=== PATIENT | female | born 1960 ===

== ENCOUNTER 2017-03-29 11:08 | Emergency (ER) | payer OTHER, SELFPAY ==
--- NOTE | 2017-03-29 11:30 | ERPHSYRPT ---
- History of Present Illness Time Seen by Provider: 03/29/17 11:22 Historian: patient Exam Limitations: no limitations Patient Subjective Stated Complaint: Pt sts chest pain substernal non-radiating for a few days today. Pain is intermittent in nature lasting 30-45 seconds. Describes the pain as dull. Pt rates pain 7/10 when pain is present. Pt sts pain is 5/10 at present. Sts pain started this morning - worse than last few days. Pt sts has hx of cardiac problems - sees Dr. Villanueva. Sts last saw him in January. Sts was taken off several cardiac medications - was told she needed to see a therapist because it was all in her head. Pt sts feels exhausted. Denies shortness of breath. Nausea x 3 days. No vomiting. Denies cold symptoms. Sts took 4 baby aspirin [employer]. Sts neck hurts but this has been going on for months. Triage Nursing Assessment: Pt alert, orientd, answers all questions appropriately. Skin pink, moist. Resps non-labored. Lung sounds CTA bilat. No wheezes, rhonchi, rales. Heart RRR. Ambulatory to treatment room, steady gait noted. Physician History: This is a 56-year-old white female with history of high blood pressure who has been complaining of intermittent chest pain anterior chest for 3 days she states today the pain began upon awakening at 9:30 she describes the pain as a dull ache, she denies shortness of breath she states she does have some nausea,. She states she took 4 baby aspirin prior to arrival at 11:00 this morning, Patient also states that she's been running a high blood pressure for a month she states that she's been having pain in her anterior neck for a month, Patient states that she is on anxiety medication secondary to her high blood pressure Past medical history includes high blood pressure, Past surgical history includes cholecystectomy tubal ligation Timing/Duration: day(s) (intermittent for 3 days today since 9:30) Activities at Onset: rest Quality: aching Location: substernal Chest Pain Radiation: neck Severity of Pain-Max: moderate Severity of Pain-Current: moderate Modifying Factors: Improves With: aspirin (patient took aspirin prior to arrival) Associated Symptoms: nausea, fatigue, No vomiting, No palpitations, No heartburn , No abdominal pain, No shortness of breath, No cough, No hurts to breathe, No diaphoresis, No chills, No fever, No weakness, No swelling/lump in chest, No syncope, No rash, No headache, No dizziness, No edema, No back pain Prior Chest Pain/Cardiac Workup: recently seen/treated (seen by Dr Villanueva in January) Nitro Today/Relief: no nitro taken today Aspirin Treatment Today: 81 mg x 4, provided at home Allergies/Adverse Reactions: codeine Allergy (Verified 03/13/16 19:32) hydrochlorothiazide Allergy (Verified 03/13/16 19:32) bupropion [From Wellbutrin] Adverse Reaction (Intermediate, Verified 03/29/17 11 :32) Itching Home Medications: Metoprolol Tartrate 50 mg PO DAILY 03/13/16 [History] Alprazolam [Xanax 0.5 mg] 0.5 mg PO HS 03/29/17 [History] Hydroxyzine HCl 25 mg PO HS 03/29/17 [History] Sertraline HCl [Zoloft] 100 mg PO 03/29/17 [History] Hx Tetanus, Diphtheria Vaccination/Date Given: Yes Hx Influenza Vaccination/Date Given: No Hx Pneumococcal Vaccination/Date Given: No Immunizations Up to Date: Yes - Review of Systems Constitutional: No Fever, No Chills Eyes: No Symptoms Ears, Nose, & Throat: No Symptoms Respiratory: No Cough, No Dyspnea Cardiac: Chest Pain, Other (pain in the anterior neck off and on for a month) Abdominal/Gastrointestinal: Nausea, No Abdominal Pain, No Vomiting, No Diarrhea , No Constipation, No Hematemesis, No Hematochezia, No Melena, No Dysphagia, No Appetite Changes Genitourinary Symptoms: No Dysuria Musculoskeletal: No Back Pain, No Neck Pain Skin: No Rash Neurological: No Dizziness, No Focal Weakness, No Sensory Changes Psychological: No Symptoms Endocrine: No Symptoms All Other Systems: Reviewed and Negative - Past Medical History Pertinent Past Medical History: Yes Neurological History: No Pertinent History ENT History: No Pertinent History Cardiac History: Hypertension Respiratory History: No Pertinent History Endocrine Medical History: No Pertinent History Musculoskeletal History: No Pertinent History GI Medical History: Gallbladder Disease History: No Pertinent History Psycho-Social History: No Pertinent History Female Reproductive Disorders: No Pertinent History - Past Surgical History Past Surgical History: Yes Neuro Surgical History: No Pertinent History Cardiac: No Pertinent History Respiratory: No Pertinent History Gastrointestinal: Cholecystectomy Genitourinary: No Pertinent History Musculoskeletal: No Pertinent History Female Surgical History: Tubal Ligation - Social History Smoking Status: Never smoker Exposure to second hand smoke: No Drug Use: none Patient Lives Alone: No Significant Family History: heart disease, hypertension, stroke - Female History Hx Last Menstrual Period: post-menopausal - Nursing Vital Signs Nursing Vital Signs: Initial Vital Signs Pulse Rate 76 03/29/17 11:10 Respiratory Rate 16 03/29/17 11:10 Blood Pressure 164/118 03/29/17 11:10 O2 Sat by Pulse Oximetry 98 03/29/17 11:10 Pain Scale Pain Intensity 5 - Physical Exam General Appearance: no apparent distress, alert Eye Exam: PERRL/EOMI, eyes nml inspection Ears, Nose, Throat Exam: normal ENT inspection, moist mucous membranes Neck Exam: normal inspection, non-tender, supple, full range of motion Respiratory Exam: normal breath sounds, lungs clear, No respiratory distress Cardiovascular Exam: regular rate/rhythm, normal heart sounds Gastrointestinal/Abdomen Exam: soft, No tenderness, No mass Back Exam: normal inspection, No CVA tenderness, No vertebral tenderness Extremity Exam: normal inspection, normal range of motion Neurologic Exam: alert, oriented x 3, cooperative, filter press tender II-XII nml as tested, normal mood/affect, sensation nml, No motor deficits Skin Exam: normal color, warm, dry SpO2 Interpretation: normal (98%) SpO2: 98 Oxygen Delivery: Room Air - Course Nursing assessment & vital signs reviewed: Yes EKG Interpreted by Me: RATE (66 bpm), Sinus Rhythm, NORMAL AXIS, Other (EKG: Sinus rhythm, 66 bpm, normal axis, no acute ST or T wave changes, essentially normal EKG) - Radiology Exams Chest X-ray Interpretation: Discussed w/ radiologist (stable, non acute chest) Ordered Tests: Active Orders 24 hr Category Date Time Status Mesh Worker STAT Care 03/29/17 11:24 Active EKG-ER Only STAT Care 03/29/17 11:23 Active IV Insertion STAT Care 03/29/17 11:23 Active Pulse Oximetry (ED) STAT Care 03/29/17 11:23 Active CHEST 1 VIEW (PORTABLE) Stat Exams 03/29/17 11:23 Completed AMYLASE Stat Lab 03/29/17 12:03 Completed CBC W DIFF Stat Lab 03/29/17 11:15 Completed CMP Stat Lab 03/29/17 11:15 Completed D-DIMER QUANTITATION Stat Lab 03/29/17 11:15 Completed LIPASE Stat Lab 03/29/17 12:03 Completed PROTIME WITH INR Stat Lab 03/29/17 11:15 Completed PTT Stat Lab 03/29/17 11:15 Completed TROPONIN Q3H Lab 03/29/17 11:15 Completed TROPONIN Q3H Lab 03/29/17 14:30 Ordered TROPONIN Q3H Lab 03/29/17 17:30 Ordered TROPONIN Q3H Lab 03/29/17 20:30 Ordered TROPONIN Q3H Lab 03/29/17 23:30 Ordered Lab/Rad Data: Laboratory Result Diagrams 03/29/17 11:15 03/29/17 11:15 Laboratory Results 03/29/17 03/29/17 03/29/17 Range/Units 12:03 11:15 11:15 WBC (4.0-10.5) K/mm3 RBC (4.1-5.4) M/mm3 Hgb (12.0-16.0) gm/dl Hct (35-47) % MCV (78-100) fl MCH (26-32) pg MCHC (32-36) g/dl RDW (11.5-14.0) % Plt Count (150-450) K/mm3 MPV (6-9.5) fl Gran % (36.0-66.0) % Lymphocytes % (24.0-44.0) % Monocytes % (0.0-12.0) % Eosinophils % (0.00-5.0) % Basophils % (0.0-0.4) % Basophils # (0-0.4) INR 1.11 (0.8-3.0) APTT 33.6 (25.3-37.0) SECONDS D-Dimer 302 (0-500) ng/mL Sodium (136-145) mEq/L Potassium (3.5-5.1) mEq/L Chloride (98-107) mEq/L Carbon Dioxide (21-32) mEq/L Anion Gap (5-15) MEQ/L BUN (9-20) mg/dL Creatinine (0.55-1.30) mg/dl Estimated GFR ML/MIN Glucose (70-110) MG/DL Calcium (8.5-10.1) mg/dL Total Bilirubin (0.2-1.0) mg/dL AST (15-37) U/L ALT (12-78) U/L Alkaline Phosphatase (46-116) U/L Troponin I 0.033 (0.000-0.056) ng/ml Serum Total Protein (6.4-8.2) gm/dL Albumin (3.4-5.0) g/dL Amylase 34 (25-115) U/L Lipase 135 (73-393) U/L 03/29/17 03/29/17 Range/Units 11:15 11:15 WBC 7.4 (4.0-10.5) K/mm3 RBC 4.89 (4.1-5.4) M/mm3 Hgb 14.3 (12.0-16.0) gm/dl Hct 42.7 (35-47) % MCV 87.3 (78-100) fl MCH 29.2 (26-32) pg MCHC 33.5 (32-36) g/dl RDW 13.8 (11.5-14.0) % Plt Count 257 (150-450) K/mm3 MPV 11.2 H (6-9.5) fl Gran % 61.0 (36.0-66.0) % Lymphocytes % 28.6 (24.0-44.0) % Monocytes % 7.4 (0.0-12.0) % Eosinophils % 2.7 (0.00-5.0) % Basophils % 0.3 (0.0-0.4) % Basophils # 0.02 (0-0.4) INR (0.8-3.0) APTT (25.3-37.0) SECONDS D-Dimer (0-500) ng/mL Sodium 143 (136-145) mEq/L Potassium 3.6 (3.5-5.1) mEq/L Chloride 105 (98-107) mEq/L Carbon Dioxide 26.8 (21-32) mEq/L Anion Gap 14.5 (5-15) MEQ/L BUN 8 L (9-20) mg/dL Creatinine 0.71 (0.55-1.30) mg/dl Estimated GFR > 60 ML/MIN Glucose 115 H (70-110) MG/DL Calcium 9.5 (8.5-10.1) mg/dL Total Bilirubin 1.10 H (0.2-1.0) mg/dL AST 21 (15-37) U/L ALT 26 (12-78) U/L Alkaline Phosphatase 78 (46-116) U/L Troponin I (0.000-0.056) ng/ml Serum Total Protein 7.5 (6.4-8.2) gm/dL Albumin 3.8 (3.4-5.0) g/dL Amylase (25-115) U/L Lipase (73-393) U/L - Progress Progress: improved Air Movement: fair Progress Note: 03/29/17 12:28 56-year-old white female with history of high blood pressure, anxiety. Who has been having chest pain 30 seconds duration off and on for the past 3 days. She's had neck pain for 30 days anteriorly. She has recently seen her adjudication specialist who she states had told her that she did not have cardiac problems and referred her to psychiatrist Patient did have an elevated blood pressure on arrival of 164/118 which is spontaneously decreased to 140/80. Patient is on metoprolol and hydroxyzine for her blood pressure she also takes a long acting alprazolam. Patient is really feeling better on recheck she is not having any pain EKG is normal chest x-ray is normal troponin is normal chemistry is normal I've discussed the patient's case with her I've offered to repeat her troponin she does not want to do this. She does state that she is frustrated with her medical condition and her doctor 's. She states she had a bad dream last night really doesn't elaborate. She denies any suicidal or homicidal ideation. Patient sees a psychiatrist Dr. Markham she states she wants to get in to see him.. Will await amylase and lipase plan to release. Will have nurse contact Dr. Markham's office and see if we can arrange follow-up 03/29/17 12:51 Patient's nurse contacted Dr. Markham's office (the patient's psychiatrist), patient already has an appointment scheduled for April 10 at 11:15 AM. Will discharge patient patient to follow-up with Dr. Markham. To follow-up with her family doctor. 03/29/17 12:53 Patient refuses repeat troponin. - Departure Time of Disposition: 12:54 Departure Disposition: Home Clinical Impression: Non-cardiac chest pain, Generalized anxiety disorder Condition: Fair Critical Care Time: No Referrals: JENNIFER CASTANON [ACTIVE STAFF] - Instructions: Atypical Chest Pain Additional Instructions: Return home. Medications as prescribed by your family doctor, your psychiatrist. Follow-up with your family doctor, your psychiatrist. Return for acute distress or for severe symptoms.
--- NOTE | 2017-03-29 11:43 | XRAY ---
Indication: Chest pain. Comparison: March 13, 2016. Portable chest remains clear. Heart is not enlarged. Vascularity normal. Bony thorax intact. Impression: Stable nonacute chest.
[2017-03-29 11:52] LABS: BASOPHIL % 0.3 % (0.0-0.4); Eosinophil % 2.7 % (0.00-5.0); Lymphocytes % 28.6 % (24.0-44.0); Mean Cell Volume 87.3 fl (78-100); Mean Corpuscular Hemoglobin 29.2 pg (26-32); Mean Platelet Volume 11.2 fl (6-9.5); Monocytes % 7.4 % (0.0-12.0); Platelet Count 257 K/mm3 (150-450); Red Blood Count 4.89 M/mm3 (4.1-5.4); Red Cell Distribution Width 13.8 % (11.5-14.0); White Blood Count 7.4 K/mm3 (4.0-10.5)
[2017-03-29 11:54] LABS: INR 1.11 (0.8-3.0); PROTIME 12.4 SECONDS (9.95-12.35)
[2017-03-29 11:56] LABS: PTT 33.6 SECONDS (25.3-37.0)
[2017-03-29 11:58] LABS: ALBUMIN 3.8 g/dL (3.4-5.0); ALKALINE PHOSPHATASE 78 U/L (46-116); ANION GAP 14.5 MEQ/L (5-15); BLOOD UREA NITROGEN 8 mg/dL (9-20); CHLORIDE 105 mEq/L (98-107); Carbon Dioxide 26.8 mEq/L (21-32); Glucose 115 MG/DL (70-110); Potassium 3.6 mEq/L (3.5-5.1); SGOT/AST 21 U/L (15-37); SGPT/ALT 26 U/L (12-78); SODIUM 143 mEq/L (136-145); Total Protein 7.5 gm/dL (6.4-8.2)
[2017-03-29 12:27] LABS: LIPASE 135 U/L (73-393)
[2017-03-29 13:11] VITALS: BP 170/94; PULSE 59; O2SAT 96
== END 2017-03-29 13:10 | disposition home or self-care (01) ==
LOC: SUPCPDRO 11:08 → ED 11:08
DX: R07.89 Other chest pain (principal); F41.9 Anxiety disorder, unspecified; M54.2 Cervicalgia; Z79.899 Other long term (current) drug therapy; I10 Essential (primary) hypertension
CPT/HCPCS: 36000; 36415; 71010; 80053; 82150; 83690; 84484; 85025; 85379; 85610; 85730; 93005; 93041; 99284

== ENCOUNTER 2017-11-12 18:51 | Emergency (ER) | payer OTHER ==
[2017-11-12 19:10] VITALS: BP 188/97; PULSE 52; O2SAT 97
--- NOTE | 2017-11-12 20:26 | ERPHSYRPT ---
- History of Present Illness Patient Subjective Stated Complaint: pt states she has pain and pressure on the lt side of her face and neck. states she has been feeling nauseous and bloated today. Triage Nursing Assessment: pt alert and oriented and answers questions approp. pt ambulaotry with steady gait noted. respirations nonlabored with lungs cta. tenderness noted to lt side of face Physician History: The patient is a 57-year-old female complaining that she has had a stopped up left ear and swelling on the left side of her face. She also wakes up in the morning saying that she's has copious amounts of nasal drainage seems to sit in her throat. It makes her nauseated. This is been going on for at least 2 weeks. She has seen her primary medical doctor and was placed on clindamycin for a probable tooth abscess. She went back to see him on Saturday and was given penicillin injections as well. She is supposed to see him this coming Saturday. Her past medical history significant for dental abscesses, anxiety, and hypertension. Timing/Duration: gradual onset, weeks (2) Severity: moderate ENT Location: throat, facial Prearrival Treatment: prescription meds Modifying Factors: Improves With: activity Associated Symptoms: facial pain/swelling, hearing loss (left ear), nasal congestion/drainage, sore throat, difficulty swallowing Allergies/Adverse Reactions: codeine Allergy (Verified 11/12/17 19:10) hydrochlorothiazide Allergy (Verified 11/12/17 19:10) bupropion [From Wellbutrin] Adverse Reaction (Intermediate, Verified 11/12/17 19 :10) Itching Home Medications: Metoprolol Tartrate 50 mg PO DAILY 03/13/16 [History] ALPRAZolam [Xanax 0.5 mg] 1 mg PO DAILY 03/29/17 [History] Fluoxetine HCl 20 mg [Prozac 20 MG] 20 mg PO DAILY 11/12/17 [History] Hx Tetanus, Diphtheria Vaccination/Date Given: Yes Hx Influenza Vaccination/Date Given: No Hx Pneumococcal Vaccination/Date Given: No Immunizations Up to Date: Yes - Review of Systems Constitutional: No Fever, No Chills Eyes: No Symptoms Ears, Nose, & Throat: Hearing Changes, Nose Congestion, Sinus Drainage, Throat Pain Respiratory: No Cough, No Dyspnea Cardiac: No Chest Pain, No Edema, No Syncope Abdominal/Gastrointestinal: Nausea, No Abdominal Pain, No Vomiting, No Diarrhea Genitourinary Symptoms: No Dysuria Musculoskeletal: No Back Pain, No Neck Pain Skin: No Rash Neurological: No Dizziness, No Focal Weakness, No Sensory Changes Psychological: No Symptoms Endocrine: No Symptoms Hematologic/Lymphatic: No Symptoms Immunological/Allergic: No Symptoms All Other Systems: Reviewed and Negative - Past Medical History Pertinent Past Medical History: Yes Neurological History: No Pertinent History ENT History: No Pertinent History Cardiac History: Hypertension Respiratory History: No Pertinent History Endocrine Medical History: No Pertinent History Musculoskeletal History: No Pertinent History GI Medical History: Gallbladder Disease History: No Pertinent History Psycho-Social History: No Pertinent History Female Reproductive Disorders: No Pertinent History - Past Surgical History Past Surgical History: Yes Neuro Surgical History: No Pertinent History Cardiac: No Pertinent History Respiratory: No Pertinent History Gastrointestinal: Cholecystectomy Genitourinary: No Pertinent History Musculoskeletal: No Pertinent History Female Surgical History: Tubal Ligation - Social History Smoking Status: Never smoker Exposure to second hand smoke: No Drug Use: none Patient Lives Alone: No Significant Family History: heart disease, hypertension, stroke - Nursing Vital Signs Nursing Vital Signs: Initial Vital Signs Temperature 97.7 F 11/12/17 19:01 Pulse Rate 52 L 11/12/17 19:01 Respiratory Rate 18 11/12/17 19:01 Blood Pressure 188/97 11/12/17 19:01 O2 Sat by Pulse Oximetry 97 11/12/17 19:01 Pain Scale Pain Intensity 5 - Physical Exam General Appearance: no apparent distress, alert Eye Exam: bilateral eye: PERRL, EOMI Ear Exam: bilateral ear: TM normal Nasal Exam: normal inspection Throat Exam: No dental tenderness, No excessive drooling, No mandibular swelling , No maxillary swelling Neck Exam: supple Cardiovascular/Respiratory Exam: normal breath sounds, regular rate/rhythm Abdominal Exam: non-tender, soft Neurologic Exam: alert, oriented x 3, sensation nml, No motor deficits Skin Exam: normal color, warm, dry SpO2: 97 Oxygen Delivery: Room Air - Departure Time of Disposition: 20:30 Departure Disposition: Home Clinical Impression: Seasonal allergic rhinitis due to pollen Condition: Stable Critical Care Time: No Referrals: FRANCISCO KNOWLES MD [Primary Care Provider] - Additional Instructions: You have postnasal drip that is caused by seasonal allergies. Continue taking the antibiotics that have been prescribed for you. In addition, take Flonase 1- 2 sprays in each nostril every morning and evening. Follow-up with your primary medical doctor on Saturday as previously scheduled. Prescriptions: Fluticasone Propionate [Flonase Nasal] 1 gm NS BID #1 spray.susp
== END 2017-11-12 20:35 | disposition home or self-care (01) ==
LOC: ED 18:51
DX: J30.1 Allergic rhinitis due to pollen (principal)
CPT/HCPCS: 99281; 99283

== ENCOUNTER 2018-01-05 10:45 | Emergency (ER) | payer OTHER ==
[2018-01-05 12:36] VITALS: O2SAT 99
[2018-01-05] MEDS ORDERED: TORAdol 30 mg Injection ONE (12:41)
[2018-01-05] MEDS: TORAdol 30 mg Injection IM ONE (12:43)
--- NOTE | 2018-01-05 12:43 | ERPHSYRPT ---
- History of Present Illness Time Seen by Provider: 01/05/18 12:37 Source: patient Exam Limitations: no limitations Patient Subjective Stated Complaint: pt reports right sided mouth jaw and neck pain for the last 3 months. states shes been to [facility] and seen her pcp. reports taking one round of clindamycin with no improvement. Triage Nursing Assessment: pt aox3, pupils perrl, resps easy and non labored, pt afebrile. slight swelling to the right face jaw. pain localized to right side of the face under the eye moving back to the neck and jaw. pt denies any dental issues. Physician History: 57-year-old white female arrives with complaint of left-sided mouth pain symptoms for 3 months worse for the past week. Patient states that she's been seen by her family doctor in the past placed on clindamycin she states this really doesn't help. Past medical history includes anxiety, ADD, high blood pressure, gallbladder disease Past surgical history includes tubal ligation Timing/Duration: other (symptoms for 3 months worse for the past 10 days) Severity: moderate Modifying Factors: Improves With: other (States took clindamycin but did not help) Associated Symptoms: other (Pain left side of mouth), No nausea, No vomiting, No abdominal pain, No shortness of breath, No heartburn, No diaphoresis, No cough, No chills, No chest pain, No fever, No headaches, No loss of appetite, No malaise, No rash, No syncope, No seizure, No weakness Allergies/Adverse Reactions: codeine Allergy (Verified 11/12/17 19:10) hydrochlorothiazide Allergy (Verified 11/12/17 19:10) bupropion [From Wellbutrin] Adverse Reaction (Intermediate, Verified 11/12/17 19 :10) Itching Home Medications: Metoprolol Tartrate 50 mg PO DAILY 03/13/16 [History] ALPRAZolam [Xanax 0.5 mg] 1 mg PO DAILY 03/29/17 [History] Fluoxetine HCl 20 mg [Prozac 20 MG] 20 mg PO DAILY 11/12/17 [History] Hx Tetanus, Diphtheria Vaccination/Date Given: Yes Hx Influenza Vaccination/Date Given: No Hx Pneumococcal Vaccination/Date Given: No Immunizations Up to Date: Yes - Review of Systems Constitutional: No Fever, No Chills Eyes: No Symptoms Ears, Nose, & Throat: Mouth Pain, No Ear Pain, No Ear Discharge, No Hearing Changes, No Tinnitus, No Nose Congestion, No Nose Discharge, No Sinus Drainage, No Epistaxis, No Mouth Swelling, No Loose Teeth, No Throat Pain, No Throat Swelling, No Hoarse, No Painful Swallowing, No Snoring, No Stridor Respiratory: No Cough, No Dyspnea Cardiac: No Chest Pain, No Edema, No Syncope Abdominal/Gastrointestinal: No Abdominal Pain, No Nausea, No Vomiting, No Diarrhea Genitourinary Symptoms: No Dysuria Musculoskeletal: No Back Pain, No Neck Pain Skin: No Rash Neurological: No Dizziness, No Focal Weakness, No Sensory Changes Psychological: No Symptoms Endocrine: No Symptoms All Other Systems: Reviewed and Negative - Past Medical History Pertinent Past Medical History: Yes Neurological History: No Pertinent History ENT History: No Pertinent History Cardiac History: Hypertension Respiratory History: No Pertinent History Endocrine Medical History: No Pertinent History Musculoskeletal History: No Pertinent History GI Medical History: Gallbladder Disease History: No Pertinent History Psycho-Social History: Anxiety, Attention Deficit Disorder Female Reproductive Disorders: No Pertinent History - Past Surgical History Past Surgical History: Yes Neuro Surgical History: No Pertinent History Cardiac: No Pertinent History Respiratory: No Pertinent History Gastrointestinal: Cholecystectomy Genitourinary: No Pertinent History Musculoskeletal: No Pertinent History Female Surgical History: Tubal Ligation - Social History Smoking Status: Never smoker Exposure to second hand smoke: No Drug Use: none Patient Lives Alone: Yes Significant Family History: heart disease, hypertension, stroke - Female History Hx Last Menstrual Period: tubal Hx Now: No - Nursing Vital Signs Nursing Vital Signs: Initial Vital Signs Temperature 98.2 F 01/05/18 10:51 Pulse Rate 73 01/05/18 10:51 Respiratory Rate 20 01/05/18 10:51 Blood Pressure 162/104 01/05/18 10:51 O2 Sat by Pulse Oximetry 97 01/05/18 10:51 Pain Scale Pain Intensity 5 - Physical Exam General Appearance: no apparent distress, alert Eye Exam: PERRL/EOMI, eyes nml inspection, other (fundi unremarkable) Ears, Nose, Throat Exam: other (Patient with tenderness left maxillary area with palpation, patient with what appearsto be teeth with fillings and maxillary area corresponding to tenderness) Neck Exam: normal inspection, non-tender, supple, full range of motion Respiratory Exam: normal breath sounds, lungs clear, No respiratory distress Cardiovascular Exam: regular rate/rhythm, normal heart sounds, normal peripheral pulses Gastrointestinal/Abdomen Exam: soft, normal bowel sounds, No tenderness, No mass Back Exam: normal inspection, normal range of motion, No CVA tenderness, No vertebral tenderness Extremity Exam: normal inspection, normal range of motion, pelvis stable Neurologic Exam: alert, oriented x 3, cooperative, sales planning manager II-XII nml as tested, normal mood/affect, nml cerebellar function, nml station & gait, sensation nml, No motor deficits Skin Exam: normal color, warm, dry, No rash Lymphatic Exam: No adenopathy SpO2 Interpretation: normal (99%) SpO2: 99 Oxygen Delivery: Room Air - Course Nursing assessment & vital signs reviewed: Yes - Progress Progress: improved Progress Note: 01/05/18 12:41 This is a 57-year-old white female who complains of pain in the left maxillary area for 3 months she has been seen by her family doctor and been given clindamycin in the past she states this does not work. Patient has some mild teeth which have fillings in the left posterior maxillary area corresponding to the area of tenderness. Will go ahead and place patient on amoxicillin patient is to take ibuprofen for pain. Patient put cold packs to the area externally. She is to follow-up with her family doctor or dentist. Will give patient Toradol injection. Patient's blood pressure is mildly elevated today she is to follow-up with her family doctor to get it rechecked. - Departure Time of Disposition: 12:43 Departure Disposition: Home Clinical Impression: Pain, dental Condition: Fair Critical Care Time: No Referrals: FRANCISCO KNOWLES MD [Primary Care Provider] - Additional Instructions: Return home. Cold packs to areas 24-48 hours (externally) Avoid excessively hot or cold foods. Amoxicillin as prescribed. Ibuprofen every 6 hours as needed for pain. Follow-up with your dentist or your family doctor. Return for acute distress or for severe symptoms. Prescriptions: Amoxicillin 500 mg PO TID #30 capsule
[2018-01-05 12:58] VITALS: BP 138/98; PULSE 65
== END 2018-01-05 13:00 | disposition home or self-care (01) ==
LOC: ED 10:45
DX: K08.89 Other specified disorders of teeth and supporting structures (principal)
CPT/HCPCS: 96372; 99283; J1885

== ENCOUNTER 2020-12-02 19:40 | Emergency (ER) | payer OTHER ==
[2020-12-02 20:28] LABS: Appearance CLOUDY (CLEAR); Bacteria MODERATE /HPF (NEGATIVE); Bilirubin NEGATIVE (NEGATIVE); Blood LARGE Ery/ul (0-5); Epithelial Cells FEW /HPF (FEW); Glucose NEGATIVE (NEGATIVE); Ketones NEGATIVE (NEGATIVE); Leukocyte Esterase LARGE (NEGATIVE); Mucus SLIGHT /HPF (NEGATIVE); Nitrite NEGATIVE (NEGATIVE); Protein,Urine Dip 30 (Negative); RBC 51-100 /HPF (0-2); Specific Gravity 1.015 (1.005-1.025); Urobilinogen NEGATIVE mg/dL (0-1); WBC >100 /HPF (0-5)
[2020-12-02] MEDS ORDERED: BACTRIM DS TABLET PO STA (20:42)
[2020-12-02] MEDS ORDERED: BACTRIM DS TABLET PO ONE (20:44)
--- NOTE | 2020-12-02 20:44 | ERPHSYRPT ---
- History of Present Illness Source: patient Patient Subjective Stated Complaint: pt states she has been having lower back pain with urination- better after urination. has had some stress incont today Triage Nursing Assessment: pt alert and oriented, answers questions approp. pt ambulatory with steady gait noted. respirations nonlabored. skin pink warm and dry. urine yellow and loudy with sedimant noted. Physician History: 60 yo HF w dysuria/frequency/urgency wo hematuria x9hr. Pt denies fever/trauma/abdominal-flank pain. Timing/Duration: today Activites at Onset: other (urinating) Quality: other (Dysuria) Onset Location: unknown Pain Radiation: none Severity of Pain-Max: mild Severity of Pain-Current: mild Prior abdominal problems: none Sexual intercourse history: non-contributory Modifying Factors: Improves With: nothing, urinating Associated Symptoms: dysuria, urinary frequency Allergies/Adverse Reactions: codeine Allergy (Verified 12/02/20 20:01) hydrochlorothiazide Allergy (Verified 12/02/20 20:01) bupropion [From Wellbutrin] Adverse Reaction (Intermediate, Verified 12/02/20 20:01) Itching Hx Tetanus, Diphtheria Vaccination/Date Given: Yes Hx Influenza Vaccination/Date Given: Yes Hx Pneumococcal Vaccination/Date Given: No Travel Risk - International Travel Have you traveled outside of the country in past 3 weeks: No - Coronavirus Screening Are you exhibiting any of the following symptoms?: No Close contact with a COVID-19 positive Pt in past 14-21 Days: No - Vaccine Status Have you recieved a Covid-19 vaccination: Yes [employer]: [employer] - Vaccination Dates Date of 2cond Vaccination (if applicable): july 2020 - Review of Systems Constitutional: No Symptoms Eyes: No Symptoms Ears, Nose, & Throat: No Symptoms Respiratory: No Symptoms Cardiac: No Symptoms Abdominal/Gastrointestinal: No Symptoms Musculoskeletal: No Symptoms Skin: No Symptoms Neurological: No Symptoms Psychological: No Symptoms Endocrine: No Symptoms Hematologic/Lymphatic: No Symptoms Immunological/Allergic: No Symptoms - Past Medical History Pertinent Past Medical History: Yes Neurological History: No Pertinent History ENT History: No Pertinent History Cardiac History: Hypertension Respiratory History: No Pertinent History Endocrine Medical History: No Pertinent History Musculoskeletal History: No Pertinent History GI Medical History: Gallbladder Disease History: No Pertinent History Psycho-Social History: Anxiety, Attention Deficit Disorder Female Reproductive Disorders: No Pertinent History - Past Surgical History Past Surgical History: Yes Neuro Surgical History: No Pertinent History Cardiac: No Pertinent History Respiratory: No Pertinent History Gastrointestinal: Cholecystectomy Genitourinary: No Pertinent History Musculoskeletal: No Pertinent History Female Surgical History: Tubal Ligation - Social History Smoking Status: Never smoker Exposure to second hand smoke: No Drug Use: none Patient Lives Alone: Yes Significant Family History: heart disease, hypertension, stroke - Female History Hx Last Menstrual Period: menopausal Hx Now: No - Nursing Vital Signs Nursing Vital Signs: Initial Vital Signs Temperature 98.6 F 12/02/20 19:48 Pulse Rate 95 H 12/02/20 19:48 Respiratory Rate 16 12/02/20 19:48 Blood Pressure 159/107 12/02/20 19:48 O2 Sat by Pulse Oximetry 96 12/02/20 19:48 Pain Scale Pain Intensity 4 - Physical Exam General Appearance: no apparent distress Eye Exam: PERRL/EOMI, eyes nml inspection Ears, Nose, Throat Exam: normal ENT inspection, TMs normal, pharynx normal, moist mucous membranes Neck Exam: normal inspection, non-tender, supple, full range of motion, No meningismus, No mass, No Brudzinski, No Kernig's Respiratory Exam: normal breath sounds, lungs clear, airway intact Cardiovascular Exam: regular rate/rhythm, normal heart sounds, normal peripheral pulses, No murmur Gastrointestinal/Abdomen Exam: soft, normal bowel sounds, No tenderness Back Exam: normal inspection, normal range of motion, No CVA tenderness Extremity Exam: normal inspection, normal range of motion Neurologic Exam: alert, oriented x 3, cooperative, normal mood/affect, nml cerebellar function, nml station & gait, sensation nml, No motor deficits, No sensory deficit SpO2: 96 O2 Delivery: Room Air - Course Nursing assessment & vital signs reviewed: Yes Ordered Tests: Active Orders 24 hr Category Date Time Status CULTURE,URINE Stat Lab 12/02/20 20:03 Received UA W/RFX UR CULTURE Stat Lab 12/02/20 20:03 Completed Medication Summary Discontinued Medications Generic Name Dose Route Start Last Admin Trade Name Freq PRN Reason Stop Dose Admin Trimethoprim/Sulfamethoxazole 1 tab 12/02/20 20:42 12/02/20 20:45 Bactrim Ds Tablet PO 12/02/20 20:43 1 tab STAT STA Administration Trimethoprim/Sulfamethoxazole Confirm 12/02/20 20:44 Bactrim Ds Tablet Administered 12/02/20 20:45 Dose 1 tab PO .STK-MED ONE Lab/Rad Data: Laboratory Results 12/02/20 Range/Units 20:03 Urine Color YELLOW (YELLOW) Urine Appearance CLOUDY (CLEAR) Urine pH 5.0 (5-6) Ur Specific [place] 1.015 (1.005-1.025) Urine Protein 30 (Negative) Urine Ketones NEGATIVE (NEGATIVE) Urine Blood LARGE (0-5) Duncan/ul Urine Nitrite NEGATIVE (NEGATIVE) Urine Bilirubin NEGATIVE (NEGATIVE) Urine Urobilinogen NEGATIVE (0-1) mg/dL Ur Leukocyte Esterase LARGE (NEGATIVE) Urine WBC (Auto) >100 (0-5) /HPF Urine RBC (Auto) 51-100 (0-2) /HPF U Epithel Cells (Auto) FEW (FEW) /HPF Urine Bacteria (Auto) MODERATE (NEGATIVE) /HPF Urine Mucus (Auto) SLIGHT (NEGATIVE) /HPF Urine Culture Reflexed YES (NO) Urine Glucose NEGATIVE (NEGATIVE) mg/dL - Progress Progress Note: 12/02/20 20:43 bactrim DS po x1 Counseled pt/family regarding: lab results - Departure Departure Disposition: Home Clinical Impression: UTI (urinary tract infection) Condition: Stable Critical Care Time: No Referrals: FRANCISCO KNOWLES MD [Primary Care Provider] - Instructions: Urinary Tract Infection, Adult (DC) Additional Instructions: Bactrim twice a day for 5 days Follow up with your family MD when antibiotics done Return to ER for increasing pain or temperature greater than 100.5 Prescriptions: Sulfamethoxazole/Trimethoprim [Bactrim Ds Tablet] 1 each PO BID #10 tablet
[2020-12-02 21:03] VITALS: BP 161/99; PULSE 82
[2020-12-02 21:12] VITALS: O2SAT 96
== END 2020-12-02 21:03 | disposition home or self-care (01) ==
LOC: ED 19:40
DX: N39.0 Urinary tract infection, site not specified (principal)
CPT/HCPCS: 81001; 87077; 87086; 87186; 99283; A9270-GY